=== PATIENT | male | born 1970 | race Caucasian/White ===

== ENCOUNTER 2018-01-09 21:47 | Emergency (ER) | payer MEDICAID ==
[2018-01-09 22:10] VITALS: BP 153/93
--- NOTE | 2018-01-09 23:04 | EDM.PDOC ---
ED HPI GENERAL MEDICAL PROBLEM - General Chief Complaint: Upper Extremity Injury/Pain Stated Complaint: RIGHT ARM PAIN Time Seen by Provider: 01/09/18 22:05 Source of Information: Reports: Patient, Old Records, Provider, RN Notes Reviewed History Limitations: Reports: No Limitations - History of Present Illness INITIAL COMMENTS - FREE TEXT/NARRATIVE: 47-year-old gentleman presents to the emergency department today complaint of right shoulder pain he recently underwent steroid injection right shoulder under x-ray guidance by radiology today, states he tolerated the procedure well however this afternoon started having increasing pain did call to the clinic today around 16:00 discussed the case with orthopedics asked for narcotics at the time which they declined recommend reports the emergency department for further evaluation. He reports the emergency department at 2300 with increasing pain and limited movement, he is experiencing no numbness and tingling he has increased pain with passive movement. He has tried Toradol and Flexeril at home I did discuss the case with orthopedics they were concern for drug-seeking behavior right arm Pain Score (Numeric/FACES): 9 - Related Data Allergies Allergy/AdvReac Type Severity Reaction Status Date / Time amoxicillin Allergy Rash Verified 01/09/18 22:21 erythromycin base Allergy Rash Verified 01/09/18 22:21 Penicillins Allergy Rash Verified 01/09/18 22:21 bees Allergy Bronchospas Uncoded 01/09/18 22:21 ms flomax Allergy Rash Uncoded 01/09/18 22:21 Home Meds: Home Meds EPINEPHrine [Epipen] 0.3 mg IM ASDIRECTED PRN 06/17/14 [History] Past Medical History Gastrointestinal History: Reports: GERD Genitourinary History: Reports: Prostate Disorder, Renal Calculus Musculoskeletal History: Reports: Fracture Other Musculoskeletal History: finger collar rib fx Psychiatric History: Reports: Anxiety - Infectious Disease History Infectious Disease History: Reports: Chicken Pox - Past Surgical History GI Surgical History: Reports: Appendectomy, Roberto Fundoplication Musculoskeletal Surgical History: Reports: Arthroscopic Knee, Carpal Tunnel Social & Family History - Tobacco Use Smoking Status *Q: Never Smoker - Caffeine Use Caffeine Use: Reports: Tea - Recreational Drug Use Recreational Drug Use: No Review of Systems - Review of Systems Review Of Systems: See Below Respiratory: Reports: No Symptoms Cardiovascular: Reports: No Symptoms Musculoskeletal: Reports: Arm Pain Skin: Reports: No Symptoms Neurological: Reports: No Symptoms ED EXAM, GENERAL - Physical Exam Exam: See Below Free Text/Narrative:: Examination of the right arm I don't appreciate any erythema there is no edema of the compartments are soft to the touch radial pulse is +2 he does have an injection site wound over the humeral head area he has no exacerbation of pain with flexing of the wrist as well as flexing of the elbow, will not tolerate any movement of the shoulder Exam Limited By: No Limitations General Appearance: Alert, Mild Distress Respiratory/Chest: No Respiratory Distress Course - Vital Signs Last Recorded V/S: Last Vital Signs Temp 98.8 F 01/09/18 22:22 Pulse 125 H 01/09/18 22:22 Resp 18 01/09/18 22:22 BP 153/93 H 01/09/18 22:22 Pulse Ox 95 01/09/18 22:22 - Orders/Labs/Meds Orders: Active Orders 24 hr Category Date Time Status Shoulder Comp Rt [CR] Stat Exams 01/09/18 23:00 Taken Departure - Departure Time of Disposition: 23:44 Disposition: Home, Self-Care 01 Condition: Fair Clinical Impression: Right arm pain - Discharge Information Referrals: PCP,None [Primary Care Provider] - Forms: ED Department Discharge Additional Instructions: Use ibuprofen for baseline pain control, use hydrocodone for breakthrough pain, please follow-up with orthopedics on Friday - My Orders Last 24 Hours: My Active Orders 01/09/18 23:00 Shoulder Comp Rt [CR] Stat - Assessment/Plan Last 24 Hours: My Active Orders 01/09/18 23:00 Shoulder Comp Rt [CR] Stat Plan: Assessment Acuity = acute Site and laterality = right arm pain Etiology = unclear etiology Manifestations = none Location of injury = Home Lab values = shoulder x-ray I did review films myself I cannot appreciate any acute process, the official read from radiology is pending Plan Prescription written for hydrocodone 5/325 one tablet by mouth 3 times a day when necessary total #20, orthopedics did recommend follow-up on Friday I did discuss the possibility of compartment syndrome with him signs and symptoms see aware of and to follow-up with the emergency department as soon as possible This note was dictated using [employer] voice recognition software please call with any questions on syntax or grammar.
--- NOTE | 2018-01-12 09:07 | CR ---
Shoulder Comp Rt INDICATION: Pain postinjection COMPARISON: None FINDINGS: 3 views. No fracture, dislocation, or other acute bony abnormality.
== END 2018-01-09 23:52 | disposition home or self-care (01) ==
LOC: JP.ED 21:47
DX: M25.511 Pain in right shoulder (principal); Z88.1 Allergy status to other antibiotic agents; Z88.0 Allergy status to penicillin; Z91.030 Bee allergy status; Z88.8 Allergy status to other drugs, medicaments and biological substances; Z92.241 Personal history of systemic steroid therapy
CPT/HCPCS: 73030-26-RT; 73030-RT; 99284

== ENCOUNTER 2022-07-09 08:25 | Day surgery (SDC) | payer OTHER ==
[2022-07-09] MEDS ORDERED: Propofol 200 MG/20 ML SDV ONE ×2 (08:32→10:30)
[2022-07-09] MEDS ORDERED: Midazolam 1 MG/ML 2 ML SDV ONE (08:32)
[2022-07-09] MEDS ORDERED: fentaNYL 50 MCG/ML SDV ONE (08:32)
[2022-07-09] MEDS ORDERED: Lactated Ringers 1,000 ML IV SCH (09:00)
[2022-07-09 11:09] VITALS: BP 113/71; PULSE 63
== END 2022-07-09 11:33 | disposition home or self-care (01) ==
LOC: JP.SDS 08:25
PROVIDERS: ATTEND Student in an Organized Health Care Education/Training Program
DX: Z12.11 Encounter for screening for malignant neoplasm of colon (principal); K21.9 Gastro-esophageal reflux disease without esophagitis; N18.9 Chronic kidney disease, unspecified; Z88.0 Allergy status to penicillin; Z88.8 Allergy status to other drugs, medicaments and biological substances; Z88.6 Allergy status to analgesic agent; Z88.1 Allergy status to other antibiotic agents; Z79.899 Other long term (current) drug therapy
CPT/HCPCS: 45378; J2250; J2704; J3010; J7120

== ENCOUNTER 2022-07-10 06:14 | Day surgery (SDC) | payer OTHER ==
[2022-07-10] MEDS ORDERED: Dextrose 5%-Lactated Ringers 1,000 ML IV SCH (06:45)
[2022-07-10] MEDS ORDERED: Midazolam 1 MG/ML 2 ML SDV ONE (07:09)
[2022-07-10] MEDS ORDERED: Propofol 200 MG/20 ML SDV ONE ×2 (07:09→07:10)
[2022-07-10] MEDS ORDERED: fentaNYL 100 MCG/2 ML SDV ONE (07:10)
[2022-07-10 08:18] VITALS: BP 115/91; PULSE 78
== END 2022-07-10 08:20 | disposition home or self-care (01) ==
LOC: JP.SDS 06:14
PROVIDERS: ATTEND Surgery
DX: Z12.11 Encounter for screening for malignant neoplasm of colon (principal); D12.3 Benign neoplasm of transverse colon; K62.1 Rectal polyp; K64.8 Other hemorrhoids; K21.9 Gastro-esophageal reflux disease without esophagitis; Z88.0 Allergy status to penicillin; Z88.6 Allergy status to analgesic agent; Z88.1 Allergy status to other antibiotic agents; Z88.8 Allergy status to other drugs, medicaments and biological substances; Z79.899 Other long term (current) drug therapy
CPT/HCPCS: 45385; 88305; J2250; J2704; J3010; J7121